=== PATIENT | male | born 1985 | race African-American/Black ===

== ENCOUNTER 2020-04-10 22:23 | Emergency (ER) | payer OTHER ==
--- NOTE | 2020-04-10 23:10 | ERPHSYRPT ---
- History of Present Illness Source: patient Exam Limitations: no limitations Patient Subjective Stated Complaint: "It hurts when I pee." Triage Nursing Assessment: Patient reported acute onset of dysuria described as burning starting four hours ago. Patient denied any precepitating events or associated symptoms. Patient denied urethral discharge. Denied abdominal or flank pain. Denied nausea, vomiting, or diarreha. Pupils equal brisk bilateral reaction. Symmetrical chest expansion. Heart tones S1 S2 regular rate and rhythm without extra sounds. Lungs clear to auscultation with adequate airflow. Abdomen obese non-distended. Physician History: 34yo male with 4hr duration of sudden onset dysuria and penile burning. Denies discharge. Denies infidelity. has sex with his girlfriend of 6 months. Hx of STD years ago for which he was treated but did not follow up on culture results. Denies any scrotal or testicular pain. Girlfriend at bedside denies any symptoms at this time. Last sex was early this morning. NO fever. Timing/Duration: today Activites at Onset: sexual activity Quality: burning Onset Location: urethral Pain Radiation: none Severity of Pain-Max: mild Severity of Pain-Current: mild Modifying Factors: Improves With: urinating Associated Symptoms: dysuria Prior abdominal problems: STD Sexual intercourse history: single partner, unprotected intercourse Allergies/Adverse Reactions: No Known Drug Allergies Allergy (Unverified 04/10/20 22:34) Hx Tetanus, Diphtheria Vaccination/Date Given: No Hx Influenza Vaccination/Date Given: No Travel Risk - International Travel Have you traveled outside of the country in past 3 weeks: No - Coronavirus Screening Are you exhibiting any of the following symptoms?: No Close contact with a COVID-19 positive Pt in past 14-21 Days: No - Past Medical History Pertinent Past Medical History: No - Past Surgical History Past Surgical History: No - Social History Smoking Status: Current every day smoker How long have you smoked: 21 Exposure to second hand smoke: No Drug Use: none Patient Lives Alone: No - Review of Systems Constitutional: No Fever, No Chills Eyes: No Symptoms Ears, Nose, & Throat: No Symptoms Respiratory: No Cough, No Dyspnea Cardiac: No Chest Pain, No Edema, No Syncope Abdominal/Gastrointestinal: No Abdominal Pain, No Nausea, No Vomiting, No Diarrhea Genitourinary Symptoms: Dysuria Musculoskeletal: No Back Pain, No Neck Pain Skin: No Rash Neurological: No Dizziness, No Focal Weakness, No Sensory Changes Psychological: No Symptoms Endocrine: No Symptoms All Other Systems: Reviewed and Negative - Nursing Vital Signs Nursing Vital Signs: Initial Vital Signs Temperature 98.3 F 04/10/20 22:24 Pulse Rate 94 H 04/10/20 22:24 Respiratory Rate 16 04/10/20 22:24 Blood Pressure 146/91 04/10/20 22:24 O2 Sat by Pulse Oximetry 97 04/10/20 22:24 Pain Scale Pain Intensity 0 - Physical Exam General Appearance: no apparent distress, alert Eye Exam: PERRL/EOMI Ears, Nose, Throat Exam: pharynx normal, moist mucous membranes Neck Exam: normal inspection, supple Respiratory Exam: normal breath sounds, lungs clear Cardiovascular Exam: regular rate/rhythm, No edema Gastrointestinal/Abdomen Exam: soft, No tenderness Male Genital Exam: normal genitalia, no hernia, No urethral discharge, No herpes-like lesion(s), No scrotal swellling Back Exam: normal inspection, No CVA tenderness Extremity Exam: normal inspection, normal range of motion, No pedal edema Neurologic Exam: alert, oriented x 3, cooperative, sensation nml, No motor deficits Skin Exam: normal color, warm, dry, No rash SpO2: 97 - Course Nursing assessment & vital signs reviewed: Yes Ordered Tests: Active Orders 24 hr Category Date Time Status UA W/RFX UR CULTURE Stat Lab 04/10/20 23:14 Completed Lab/Rad Data: Laboratory Results 04/10/20 04/10/20 Range/Units 23:14 23:14 Urine Color STRAW (YELLOW) Urine Appearance CLEAR (CLEAR) Urine pH 5.0 (5-6) Ur Specific [place] 1.009 (1.005-1.025) Urine Protein NEGATIVE (Negative) Urine Ketones NEGATIVE (NEGATIVE) Urine Blood NEGATIVE (0-5) Bigg/ul Urine Nitrite NEGATIVE (NEGATIVE) Urine Bilirubin NEGATIVE (NEGATIVE) Urine Urobilinogen NEGATIVE (0-1) mg/dL Ur Leukocyte Esterase NEGATIVE (NEGATIVE) Urine WBC (Auto) NONE (0-5) /HPF Urine RBC (Auto) NONE (0-2) /HPF U Epithel Cells (Auto) NONE (FEW) /HPF Urine Bacteria (Auto) NONE SEEN (NEGATIVE) /HPF Urine Mucus (Auto) SLIGHT (NEGATIVE) /HPF Urine Culture Reflexed NO (NO) Urine Glucose NEGATIVE (NEGATIVE) mg/dL Chlamydia DNA Probe NOT DETECTED (NEGATIVE) N.gonorrhoeae DNA Probe NOT DETECTED (NEGATIVE) - Progress Progress: unchanged Progress Note: 04/10/20 23:09 UA and GC DNA probably will treat for STD given hx. 04/11/20 01:04 GC neg Will tx as UTI Keflex, pyridium DC home Counseled pt/family regarding: lab results, diagnosis, need for follow-up - Departure Departure Disposition: Home Clinical Impression: Dysuria Condition: Stable Critical Care Time: No Instructions: Urinary Tract Infection, Adult (DC) Additional Instructions: Take meds as prescribed hydration Followup with PCP if not better Return to ER if worse. Prescriptions: Cephalexin Mh 500 mg [Keflex 500 mg] 500 mg PO TID #21 capsule Phenazopyridine HCl 200 mg [Pyridium 200 mg] 200 mg PO TID #6 tablet
[2020-04-10 23:52] LABS: Appearance CLEAR (CLEAR); Bilirubin NEGATIVE (NEGATIVE); Blood NEGATIVE Ery/ul (0-5); Glucose NEGATIVE (NEGATIVE); Ketones NEGATIVE (NEGATIVE); Leukocyte Esterase NEGATIVE (NEGATIVE); Mucus SLIGHT /HPF (NEGATIVE); Nitrite NEGATIVE (NEGATIVE); Protein,Urine Dip NEGATIVE (Negative); Specific Gravity 1.009 (1.005-1.025); Urobilinogen NEGATIVE mg/dL (0-1)
[2020-04-11 00:01] LABS: Bacteria NONE SEEN /HPF (NEGATIVE)
[2020-04-11 00:55] LABS: CHLAMYDIA DNA NOT DETECTED (NEGATIVE); GC DNA Probe NOT DETECTED (NEGATIVE)
[2020-04-11] MEDS ORDERED: PYRIDIUM 200 MG PO ONE (01:02)
[2020-04-11] MEDS ORDERED: KEFLEX 500 MG PO ONE (01:02)
[2020-04-11] MEDS ORDERED: KEFLEX 500 MG ONE (01:15)
[2020-04-11] MEDS ORDERED: PYRIDIUM 200 MG ONE (01:16)
[2020-04-11 01:25] VITALS: BP 128/76; PULSE 82; O2SAT 98
== END 2020-04-11 01:24 | disposition home or self-care (01) ==
LOC: ED 22:23
DX: N39.0 Urinary tract infection, site not specified (principal)
CPT/HCPCS: 81001; 87491; 87591; 99284; A9270-GY

== ENCOUNTER 2020-06-21 07:36 | Emergency (ER) | payer OTHER ==
[2020-06-21] MEDS ORDERED: Zofran 4 MG/2 ML VIAL IV ONE (07:57)
[2020-06-21] MEDS ORDERED: MORPHINE SULFATE 4 MG INJ IV ONE (07:57)
[2020-06-21] MEDS ORDERED: Sodium Chloride 0.9% 1000 ML 1,000 ML IV STA (07:57)
--- NOTE | 2020-06-21 08:02 | ERPHSYRPT ---
- History of Present Illness Time Seen by Provider: 06/21/20 07:51 Patient Subjective Stated Complaint: PT states "My belly is tight and hurts." Triage Nursing Assessment: Pt presented alert and oriented X 3, skin pwd Pt ambulates with an upright steady gait, able to speak in clear full sentences pt in no apparent respiratory distress. Pt abdomen distended, firm. Physician History: 34 years old -[place] male with history of GERD presented in the ER with chief complaint of generalized abdominal distention and pain in the left lower quadrant/periumbilical area moderate intensity started last night, gradually worsening. Report increased pain with palpation and movement and partial relief with being still. Patient also report he feels as if he needs to have a bowel movement but cannot go. Did have a heart bowel movement yesterday. Has history of acid reflux but denies any nausea or vomiting. No fever or chills reported. Timing/Duration: yesterday, gradual onset, worse Activities at Onset: rest Quality: cramping, sharpness Abdominal Pain Onset Location: LLQ, periumbilical Pain Radiation: no radiation Severity of Pain-Max: moderate Severity of Pain-Current: moderate Modifying Factors: Improves With: rest. Worsens With: movement, palpation Associated Symptoms: heartburn Previous symptoms: no prior history Allergies/Adverse Reactions: No Known Drug Allergies Allergy (Verified 06/21/20 07:50) Hx Tetanus, Diphtheria Vaccination/Date Given: No Hx Influenza Vaccination/Date Given: No Hx Pneumococcal Vaccination/Date Given: No Immunizations Up to Date: Yes Travel Risk - International Travel Have you traveled outside of the country in past 3 weeks: No - Coronavirus Screening Are you exhibiting any of the following symptoms?: No Close contact with a COVID-19 positive Pt in past 14-21 Days: No - Review of Systems Constitutional: No Symptoms Eyes: No Symptoms Ears, Nose, & Throat: No Symptoms Respiratory: No Symptoms Cardiac: No Symptoms Abdominal/Gastrointestinal: Abdominal Pain, Constipation Genitourinary Symptoms: No Symptoms Musculoskeletal: No Symptoms Skin: No Symptoms Neurological: No Symptoms Psychological: No Symptoms Endocrine: No Symptoms Hematologic/Lymphatic: No Symptoms Immunological/Allergic: No Symptoms - Past Medical History Pertinent Past Medical History: No - Past Surgical History Past Surgical History: No - Social History Smoking Status: Current every day smoker How long have you smoked: 21 Exposure to second hand smoke: No Drug Use: none Patient Lives Alone: No - Nursing Vital Signs Nursing Vital Signs: Initial Vital Signs Temperature 99.0 F 06/21/20 07:46 Pulse Rate 70 06/21/20 07:46 Respiratory Rate 20 06/21/20 07:46 Blood Pressure 164/101 06/21/20 07:46 O2 Sat by Pulse Oximetry 100 06/21/20 07:46 Pain Scale Pain Intensity 8 - Physical Exam General Appearance: no apparent distress, alert Eye Exam: PERRL/EOMI, eyes nml inspection Ears, Nose, Throat Exam: normal ENT inspection, pharynx normal Neck Exam: normal inspection, supple, full range of motion Respiratory Exam: normal breath sounds, lungs clear Cardiovascular Exam: regular rate/rhythm, normal heart sounds Gastrointestinal/Abdomen Exam: soft, normal bowel sounds, tenderness (Minimal generalized), distention, No guarding Back Exam: normal inspection, normal range of motion Extremity Exam: normal inspection, normal range of motion Neurologic Exam: alert, oriented x 3, cooperative Skin Exam: normal color SpO2 Interpretation: normal SpO2: 100 O2 Delivery: Room Air Ordered Tests: Active Orders 24 hr Category Date Time Status IV Insertion STAT Care 06/21/20 07:57 Completed OBSTR/ACUTE ABDOMEN SERIES Stat Exams 06/21/20 07:57 Taken CBC W DIFF Stat Lab 06/21/20 07:50 Completed CMP Stat Lab 06/21/20 07:50 Completed LIPASE Stat Lab 06/21/20 07:50 Completed UA W/RFX UR CULTURE Stat Lab 06/21/20 09:20 Completed Medication Summary Discontinued Medications Generic Name Dose Route Start Last Admin Trade Name Mike PRN Reason Stop Dose Admin Sodium Chloride 1,000 mls @ 999 mls/hr 06/21/20 07:57 06/21/20 09:14 Sodium Chloride 0.9% 1000 Ml IV 06/21/20 08:57 Infused .Q1H1M STA Infusion Sodium Chloride Confirm 06/21/20 08:04 Sodium Chloride 0.9% 1000 Ml Administered 06/21/20 08:05 Dose 1,000 mls @ ud .ROUTE .STK-MED ONE Morphine Sulfate 4 mg 06/21/20 07:57 06/21/20 08:07 Morphine Sulfate 4 Mg Inj IV 06/21/20 07:58 4 mg STAT ONE Administration Morphine Sulfate Confirm 06/21/20 08:04 Morphine Sulfate 4 Mg Inj Administered 06/21/20 08:05 Dose 4 mg .ROUTE .STK-MED ONE Ondansetron HCl 4 mg 06/21/20 07:57 06/21/20 08:07 Zofran 4 Mg/2 Ml Vial IV 06/21/20 07:58 4 mg STAT ONE Administration Ondansetron HCl Confirm 06/21/20 08:04 Zofran 4 Mg/2 Ml Vial Administered 06/21/20 08:05 Dose 4 mg .ROUTE .STK-MED ONE Lab/Rad Data: Laboratory Result Diagrams 06/21/20 07:50 06/21/20 07:50 Laboratory Results 06/21/20 06/21/20 06/21/20 Range/Units 09:20 07:50 07:50 WBC 8.3 (4.0-10.5) K/mm3 RBC 4.51 (4.1-5.6) M/mm3 Hgb 13.6 (12.5-18.0) gm/dl Hct 40.3 L (42-50) % MCV 89.4 (78-100) fl MCH 30.2 (26-32) pg MCHC 33.7 (32-36) g/dl RDW 12.2 (11.5-14.0) % Plt Count 215 (150-450) K/mm3 MPV 11.0 (7.5-11.0) fl Gran % 46.4 (36.0-66.0) % Eos # (Auto) 0.43 (0-0.5) Absolute Lymphs (auto) 2.92 (1.0-4.6) Absolute Monos (auto) 1.09 (0.0-1.3) Lymphocytes % 35.1 (24.0-44.0) % Monocytes % 13.1 H (0.0-12.0) % Eosinophils % 5.2 H (0.00-5.0) % Basophils % 0.2 (0.0-0.4) % Absolute Granulocytes 3.87 (1.4-6.9) Basophils # 0.02 (0-0.4) Sodium 138 (137-145) mmol/L Potassium 3.8 (3.5-5.1) mmol/L Chloride 106 (98-107) mmol/L Carbon Dioxide 25 (22-30) mmol/L Anion Gap 10.8 (5-15) MEQ/L BUN 8 L (9-20) mg/dL Creatinine 0.97 (0.66-1.25) mg/dL Estimated GFR > 60.0 ML/MIN Glucose 117 H (74-106) mg/dL Calcium 9.4 (8.4-10.2) mg/dL Total Bilirubin 0.70 (0.2-1.3) mg/dL AST 32 (17-59) U/L ALT 32 (0-50) U/L Alkaline Phosphatase 68 (38-126) U/L Serum Total Protein 7.2 (6.3-8.2) g/dL Albumin 4.2 (3.5-5.0) g/dL Lipase 72 (23-300) U/L Urine Color YELLOW (YELLOW) Urine Appearance CLEAR (CLEAR) Urine pH 5.0 (5-6) Ur Specific [place] 1.014 (1.005-1.025) Urine Protein NEGATIVE (Negative) Urine Ketones NEGATIVE (NEGATIVE) Urine Blood NEGATIVE (0-5) Bigg/ul Urine Nitrite NEGATIVE (NEGATIVE) Urine Bilirubin NEGATIVE (NEGATIVE) Urine Urobilinogen NEGATIVE (0-1) mg/dL Ur Leukocyte Esterase NEGATIVE (NEGATIVE) Urine WBC (Auto) 0-2 (0-5) /HPF Urine RBC (Auto) NONE (0-2) /HPF Urine Mucus (Auto) SLIGHT (NEGATIVE) /HPF Urine Culture Reflexed NO (NO) Urine Glucose NEGATIVE (NEGATIVE) mg/dL - Progress Progress: improved, re-examined Progress Note: 06/21/20 09:43 34 years old is evaluated for abdominal pain. He is given fluid bolus and morphine. Patient did have a good bowel movement while in the ER before x-rays done and his pain is relieved. On reevaluation patient is not in pain at all. Abdominal exam is soft nontender with no peritoneal signs. Normal white count, grossly unremarkable chemistries. No UTI. X-rays did not show any acute findings. Has some stool load in the left colon. Recommended MiraLAX, Tylenol ibuprofen as needed and outpatient follow-up. Discussed signs symptoms of worsening needing return to ER which he seems understanding. Counseled pt/family regarding: lab results, diagnosis, need for follow-up, rad results - Departure Departure Disposition: Home Clinical Impression: Abdominal pain Qualifiers: Abdominal location: unspecified location Qualified Code(s): R10.9 - Unspecified abdominal pain Constipation Qualifiers: Constipation type: other constipation type Qualified Code(s): K59.09 - Other constipation Condition: Stable Critical Care Time: No Referrals: DOCTOR,NO FAMILY [Primary Care Provider] - ALEA MAHER MD [ACTIVE STAFF] - (1-2 days for re evaluation ) Instructions: Acute Abdomen (Belly Pain), Adult (DC) Additional Instructions: Take Colace and MiraLAX regularly. Take Tylenol/ibuprofen as needed. Follow-up with primary care physician for reevaluation. Increase fiber in diet. Return to ER for worsening pain or if develop nausea vomiting/fever or chills. Prescriptions: Polyethylene Glycol 3350 [Miralax] 17 gm PO DAILY 10 Days #527 powder
[2020-06-21] MEDS ORDERED: Zofran 4 MG/2 ML VIAL ONE (08:04)
[2020-06-21] MEDS ORDERED: Sodium Chloride 0.9% 1000 ML 1,000 ML ONE (08:04)
[2020-06-21] MEDS ORDERED: MORPHINE SULFATE 4 MG INJ ONE (08:04)
[2020-06-21 08:14] LABS: Absolute Neutrophil Ct (ANC) 3.87 (1.4-6.9); BASOPHIL % 0.2 % (0.0-0.4); Basophil (Absolute #) 0.02 (0-0.4); Eosinophil % 5.2 % (0.00-5.0); Eosinophil (Absolute #) 0.43 (0-0.5); Hematocrit 40.3 % (42-50); Hemoglobin 13.6 gm/dl (12.5-18.0); Lymphocyte (Absolute #) 2.92 (1.0-4.6); Lymphocytes % 35.1 % (24.0-44.0); Mean Cell Volume 89.4 fl (78-100); Mean Corpuscular Hemoglobin 30.2 pg (26-32); Mean Corpuscular Hgb Concent. 33.7 g/dl (32-36); Monocyte (Absolute #) 1.09 (0.0-1.3); Monocytes % 13.1 % (0.0-12.0); Neutrophil % 46.4 % (36.0-66.0); Platelet Count 215 K/mm3 (150-450); Red Blood Count 4.51 M/mm3 (4.1-5.6); Red Cell Distribution Width 12.2 % (11.5-14.0); White Blood Count 8.3 K/mm3 (4.0-10.5)
[2020-06-21 08:20] LABS: ALBUMIN 4.2 g/dL (3.5-5.0); ALKALINE PHOSPHATASE 68 U/L (38-126); ANION GAP 10.8 MEQ/L (5-15); BLOOD UREA NITROGEN 8 mg/dL (9-20); CHLORIDE 106 mmol/L (98-107); Calcium 9.4 mg/dL (8.4-10.2); Carbon Dioxide 25 mmol/L (22-30); Creatinine 1 0.97 mg/dL (0.66-1.25); EST GLOMERULAR FILTRATION RATE > 60.0 ML/MIN; Glucose 117 mg/dL (74-106); LIPASE 72 U/L (23-300); Potassium 3.8 mmol/L (3.5-5.1); SGOT/AST 32 U/L (17-59); SGPT/ALT 32 U/L (0-50); SODIUM 138 mmol/L (137-145); Total Protein 7.2 g/dL (6.3-8.2)
[2020-06-21 09:08] VITALS: BP 141/87
[2020-06-21 09:26] LABS: Appearance CLEAR (CLEAR); Bilirubin NEGATIVE (NEGATIVE); Blood NEGATIVE Ery/ul (0-5); Glucose NEGATIVE (NEGATIVE); Ketones NEGATIVE (NEGATIVE); Leukocyte Esterase NEGATIVE (NEGATIVE); Mucus SLIGHT /HPF (NEGATIVE); Nitrite NEGATIVE (NEGATIVE); Protein,Urine Dip NEGATIVE (Negative); Specific Gravity 1.014 (1.005-1.025); Urobilinogen NEGATIVE mg/dL (0-1); WBC 0-2 /HPF (0-5)
[2020-06-21 09:33] VITALS: PULSE 65
[2020-06-21 09:45] VITALS: O2SAT 100
--- NOTE | 2020-06-21 10:30 | XRAY ---
Indication: Abdomen pain. Distention. Comparison: None 2 view abdomen nonacute and nonobstructed. Solid organs and osseous structures unremarkable. Single AP chest demonstrates normal heart, lungs, and bony thorax. Impression: Negative abdomen. Normal one view chest.
== END 2020-06-21 09:40 | disposition home or self-care (01) ==
LOC: ED 07:36
DX: R10.32 Left lower quadrant pain (principal); K59.09 Other constipation
CPT/HCPCS: 36000; 36415; 74022; 80053; 81001; 83690; 85025; 96360; 96374; 96375; 99284; J2270; J2405